=== PATIENT | male | born 1970 | race Caucasian/White ===

== ENCOUNTER 2020-10-25 10:45 | Observation (INO) ==
[2020-10-25] MEDS ORDERED: 0.9 % Sodium Chloride 1,000 ML IVC ONE (11:02)
[2020-10-25] MEDS ORDERED: *HR* FentaNYL (PF) 100 MCG/2 ML VIAL IVP ONE ×2 (11:08→15:57)
[2020-10-25] MEDS ORDERED: Ondansetron 4 MG/2 ML VIAL IVP ONE ×2 (11:08→15:57)
[2020-10-25 11:37] LABS: Basophils % 0.9 %; Eosinophils % 0.9 %; Immature Granulocytes % 0.2 % (0-4); Red Cell Distribution Width 12.7 % (11.5-14.5)
[2020-10-25 11:39] LABS: Hematocrit 46.2 % (37.5-50.1); Hemoglobin 16.2 g/dL (12.9-16.9); Immature Platelets 9.6 % (1.1-6.1); Lymphocytes # 1.3 K/mcL (0.6-4.6); Lymphocytes % 28.4 %; Mean Corpuscular HGB Conc 35.1 g/dL (31.6-35.5); Mean Corpuscular Hemoglobin 33.2 pg (28.0-33.3); Mean Corpuscular Volume 94.7 fL (83.0-100.0); Mean Platelet Volume 11.6 fL (9.4-12.4); Monocytes # 0.3 K/mcL (0.0-1.3); Monocytes % 7.3 %; Neutrophils # 2.9 K/mcL (1.6-8.9); Red Blood Count 4.88 M/mcL (4.19-5.50); Segmented Neutrophils % 62.3 %; White Blood Count 4.6 K/mcL (4.3-11.1)
[2020-10-25 11:55] LABS: Platelet Count 71 K/mcL (140-400)
[2020-10-25 11:58] LABS: Alanine Aminotransferase 104 Units/L (7-52); Albumin 3.7 g/dL (3.5-5.7); Albumin/Globulin Ratio 0.9 (1.1-2.2); Alkaline Phosphatase 104 Units/L (34-104); Aspartate Amino Transferase 142 Units/L (13-39); BUN/Creatinine Ratio 14 (6-26); Bilirubin,Direct 2.9 mg/dL (0.0-0.2); Bilirubin,Indirect 4.4 mg/dL (0.0-1.0); Bilirubin,Total 7.3 mg/dL (0.3-1.0); Blood Urea Nitrogen 10 mg/dL (6-20); Calcium 9.1 mg/dL (8.6-10.3); Carbon Dioxide 22 mEq/L (23-29); Chloride 103 mEq/L (98-107); Globulin 3.9 g/dL (2.4-3.5); Glucose 193 mg/dL (70-105); Lipase 63 Units/L (11-82); Osmolality,Calculated 286 (280-300); Potassium 3.3 mEq/L (3.5-5.1); Sodium 136 mEq/L (136-145); Total Protein 7.6 g/dL (6.4-8.9); Troponin I < 0.03 ng/mL (< 0.04); eGFR For African Americans > 60 (> 60); eGFR For Non-African Americans > 60 (> 60)
[2020-10-25] MEDS ORDERED: Isovue-370 500 ML BOTTLE IVP ONE (12:24)
[2020-10-25] MEDS ORDERED: 0.9 % Sodium Chloride 1,000 ML IV ONE (13:27)
[2020-10-25 15:01] LABS: Bilirubin,Urine Negative (Negative); Blood,Urine Negative (Negative); Clarity,Urine Clear (Clear); Color,Urine Light-Orange (Yellow); Glucose,Urine (UA) Normal (Normal); Ketones,Urine Negative (Negative); Leukocyte Esterase,Urine Negative (Negative); Nitrite,Urine Negative (Negative); PH,Urine 6.5 pH Units (5.0-8.0); Protein,Urine Trace mg/dL (Neg-Trace); Specific Gravity,Urine > 1.030 (1.010-1.025); Urobilinogen,Urine >=8.0 mg/dL (Normal)
[2020-10-25 16:47] LABS: Hepatitis B Surface Antigen Nonreactive (Nonreactive)
[2020-10-25 17:16] LABS: Hepatitis B Core IgM Nonreactive (Nonreactive)
[2020-10-25 17:18] LABS: Hepatitis A Antibody IgM Nonreactive (Nonreactive)
[2020-10-25 17:58] LABS: INR 1.9; Prothrombin Time 21.7 Seconds (9.4-12.1)
[2020-10-25 18:01] LABS: Activated Partial Thrombo Time 36.9 Seconds (26.0-36.0)
[2020-10-25] MEDS ORDERED: Nicotine 21 MG PATCH.TD24 TD STA (18:54)
[2020-10-25] MEDS ORDERED: *HR* LORazepam 2 MG/ML VIAL IVP ONE (20:52)
[2020-10-25] MEDS ORDERED: MethylPREDNISolone 40 MG/ML VIAL IVP SCH (21:00)
[2020-10-25 21:31] LABS: Hepatitis C Virus Antibody Reactive (Nonreactive)
[2020-10-25] MEDS ORDERED: Naloxone 0.4 MG/ML INJ IVP PRN (22:17)
[2020-10-25] MEDS ORDERED: Melatonin 3 MG TABLET PO PRN (22:17)
[2020-10-25] MEDS ORDERED: 0.9 % Sodium Chloride 1,000 ML IVC SCH (22:30)
[2020-10-25] MEDS ORDERED: *HR* LORazepam 2 MG/ML VIAL IVP PRN ×2 (23:05)
[2020-10-26] MEDS ORDERED: Octreotide 50 MCG/ML INJ IVP ONE ×2 (00:39→01:00)
[2020-10-26] MEDS: Pantoprazole 40 MG VIAL IVP SCH ×3 (01:29→17:05)
[2020-10-26] MEDS: *HR* LORazepam 2 MG/ML VIAL IVP PRN ×2 (01:32→06:40)
[2020-10-26] MEDS: Octreotide 400 MCG in 0.9 % Sodium Chloride 100 ML IVC SCH ×2 (01:32→10:53)
[2020-10-26] MEDS: Ondansetron 4 MG/2 ML VIAL IVP PRN ×2 (02:28→10:48)
[2020-10-26 04:38] LABS: Mean Platelet Volume 11.5 fL (9.4-12.4)
[2020-10-26 04:40] LABS: Hematocrit 42.7 % (37.5-50.1); Hemoglobin 14.7 g/dL (12.9-16.9); Immature Platelets 6.9 % (1.1-6.1); Mean Corpuscular HGB Conc 34.4 g/dL (31.6-35.5); Mean Corpuscular Hemoglobin 33.2 pg (28.0-33.3); Mean Corpuscular Volume 96.4 fL (83.0-100.0); Red Blood Count 4.43 M/mcL (4.19-5.50); Red Cell Distribution Width 12.7 % (11.5-14.5); White Blood Count 3.1 K/mcL (4.3-11.1)
[2020-10-26 04:59] LABS: Alanine Aminotransferase 94 Units/L (7-52); Albumin 3.4 g/dL (3.5-5.7); Albumin/Globulin Ratio 0.9 (1.1-2.2); Alkaline Phosphatase 94 Units/L (34-104); Aspartate Amino Transferase 112 Units/L (13-39); BUN/Creatinine Ratio 13 (6-26); Blood Urea Nitrogen 9 mg/dL (6-20); Calcium 8.6 mg/dL (8.6-10.3); Carbon Dioxide 21 mEq/L (23-29); Chloride 108 mEq/L (98-107); Cholesterol 133 mg/dL (< 200); Globulin 3.7 g/dL (2.4-3.5); Glucose 125 mg/dL (70-105); HDL Cholesterol 19 mg/dL (40-59); LDL Cholesterol,Calculated 99 mg/dL (< 100); Magnesium 1.6 mg/dL (1.6-2.6); Osmolality,Calculated 286 (280-300); Phosphorous 3.4 mg/dL (2.7-4.5); Potassium 3.9 mEq/L (3.5-5.1); Sodium 138 mEq/L (136-145); Total Protein 7.1 g/dL (6.4-8.9); Triglycerides 76 mg/dL (< 150); eGFR For African Americans > 60 (> 60); eGFR For Non-African Americans > 60 (> 60)
[2020-10-26 05:54] LABS: Prothrombin Time 22.4 Seconds (9.4-12.1)
[2020-10-26] MEDS ORDERED: Nicotine 21 MG PATCH.TD24 TD SCH (09:00)
[2020-10-26] MEDS: Lactulose Oral Soln 20 GM/30 ML UDC PO SCH ×2 (10:49→20:02)
[2020-10-26 14:51] LABS: Estimated Average Glucose 91 mg/dl; Hemoglobin A1C 4.8 %
[2020-10-26] MEDS ORDERED: Thiamine (B-1) 100 MG, Folic Acid 1 MG, MVI, adult with vitamin K 10 ML in 0.9 % Sodi... IVPB SCH (18:00)
[2020-10-26] MEDS: Nicotine 21 MG PATCH.TD24 TD SCH (20:01)
[2020-10-27] MEDS ORDERED: *HR* HYDROmorphone 2 MG TABLET PO ONE (01:33)
[2020-10-27 01:47] VITALS: BP 158/97
[2020-10-27 02:48] LABS: Basophils % 0.5 %; Eosinophils % 0.7 %; Hematocrit 41.3 % (37.5-50.1); Hemoglobin 14.7 g/dL (12.9-16.9); Immature Granulocytes % 0.3 % (0-4); Immature Platelets 7.4 % (1.1-6.1); Lymphocytes # 1.5 K/mcL (0.6-4.6); Lymphocytes % 25.4 %; Mean Corpuscular HGB Conc 35.6 g/dL (31.6-35.5); Mean Corpuscular Hemoglobin 33.8 pg (28.0-33.3); Mean Corpuscular Volume 94.9 fL (83.0-100.0); Mean Platelet Volume 11.4 fL (9.4-12.4); Monocytes # 0.4 K/mcL (0.0-1.3); Neutrophils # 3.8 K/mcL (1.6-8.9); Platelet Count 65 K/mcL (140-400); Red Blood Count 4.35 M/mcL (4.19-5.50); Red Cell Distribution Width 12.5 % (11.5-14.5); Segmented Neutrophils % 66.1 %; White Blood Count 5.7 K/mcL (4.3-11.1)
[2020-10-27 03:03] LABS: Alanine Aminotransferase 82 Units/L (7-52); Albumin 3.4 g/dL (3.5-5.7); Alkaline Phosphatase 88 Units/L (34-104); Aspartate Amino Transferase 90 Units/L (13-39); BUN/Creatinine Ratio 15 (6-26); Blood Urea Nitrogen 10 mg/dL (6-20); Calcium 8.5 mg/dL (8.6-10.3); Carbon Dioxide 26 mEq/L (23-29); Chloride 104 mEq/L (98-107); Globulin 3.4 g/dL (2.4-3.5); Glucose 123 mg/dL (70-105); Osmolality,Calculated 284 (280-300); Potassium 3.1 mEq/L (3.5-5.1); Sodium 137 mEq/L (136-145); Total Protein 6.8 g/dL (6.4-8.9); eGFR For African Americans > 60 (> 60); eGFR For Non-African Americans > 60 (> 60)
[2020-10-27 03:04] LABS: Albumin 3.4 g/dL (3.5-5.7); Globulin 3.4 g/dL (2.4-3.5); Total Protein 6.8 g/dL (6.4-8.9)
[2020-10-27] MEDS ORDERED: Ibuprofen 800 MG TABLET PO ONE (04:33)
[2020-10-27] MEDS: Pantoprazole 40 MG VIAL IVP SCH (04:49)
[2020-10-27] MEDS: Nicotine 21 MG PATCH.TD24 TD SCH (08:45)
[2020-10-27] MEDS: Lactulose Oral Soln 20 GM/30 ML UDC PO SCH (08:45)
== END 2020-10-27 10:40 | disposition home or self-care (01) ==
LOC: EMEROOARM 10:45 → 3NENU 10:45 → 2ANU 23:30 → 3BNU 10-26 22:47
PROVIDERS: ADMIT Student in an Organized Health Care Education/Training Program; ATTEND Student in an Organized Health Care Education/Training Program

== ENCOUNTER 2021-01-20 20:52 | Observation (INO) ==
[2021-01-20] MEDS ORDERED: Isovue-370 500 ML BOTTLE IVP ONE ×2 (21:23→21:33)
[2021-01-20] MEDS ORDERED: Ondansetron 4 MG/2 ML VIAL ONE (21:30)
[2021-01-20] MEDS ORDERED: Morphine Sulfate 2 MG/ML SYRINGE IVP ONE ×2 (21:34→23:57)
[2021-01-20] MEDS ORDERED: Ondansetron 4 MG/2 ML VIAL IVP ONE (21:34)
[2021-01-20 21:46] LABS: Basophils # 0.1 K/mcL (0.0-0.2); Basophils % 0.8 %; Eosinophils % 0.3 %; Hematocrit 46.1 % (37.5-50.1); Hemoglobin 16.2 g/dL (12.9-16.9); Immature Granulocytes % 0.3 % (0-4); Lymphocytes # 1.8 K/mcL (0.6-4.6); Lymphocytes % 20.5 %; Mean Corpuscular HGB Conc 35.1 g/dL (31.6-35.5); Mean Corpuscular Hemoglobin 31.4 pg (28.0-33.3); Mean Corpuscular Volume 89.3 fL (83.0-100.0); Mean Platelet Volume 10.9 fL (9.4-12.4); Monocytes # 0.5 K/mcL (0.0-1.3); Monocytes % 6.1 %; Neutrophils # 6.2 K/mcL (1.6-8.9); Platelet Count 142 K/mcL (140-400); Red Blood Count 5.16 M/mcL (4.19-5.50); Red Cell Distribution Width 12.9 % (11.5-14.5); White Blood Count 8.6 K/mcL (4.3-11.1)
[2021-01-20 22:27] LABS: INR 1.5; Prothrombin Time 17.3 Seconds (9.4-12.1)
[2021-01-20 22:44] LABS: Alanine Aminotransferase 50 Units/L (7-52); Albumin 4.2 g/dL (3.5-5.7); Albumin/Globulin Ratio 0.9 (1.1-2.2); Alkaline Phosphatase 100 Units/L (34-104); Aspartate Amino Transferase 75 Units/L (13-39); BUN/Creatinine Ratio 14 (6-26); Bilirubin,Direct 0.4 mg/dL (0.0-0.2); Bilirubin,Indirect 2.7 mg/dL (0.0-1.0); Bilirubin,Total 3.1 mg/dL (0.3-1.0); Blood Urea Nitrogen 11 mg/dL (6-20); Calcium 9.4 mg/dL (8.6-10.3); Carbon Dioxide 20 mEq/L (23-29); Chloride 103 mEq/L (98-107); Globulin 4.5 g/dL (2.4-3.5); Glucose 106 mg/dL (70-105); Lipase 43 Units/L (11-82); Osmolality,Calculated 278 (280-300); Sodium 134 mEq/L (136-145); Total Protein 8.7 g/dL (6.4-8.9); eGFR For African Americans > 60 (> 60); eGFR For Non-African Americans > 60 (> 60)
[2021-01-20 23:40] LABS: Troponin I < 0.03 ng/mL (< 0.04)
[2021-01-21] MEDS ORDERED: Nicotine 21 MG PATCH.TD24 TD ONE (00:30)
[2021-01-21] MEDS ORDERED: *HR* HYDROmorphone (PF) 1 MG/ML SYRINGE IVP ONE (02:49)
[2021-01-21] MEDS ORDERED: Ondansetron 4 MG/2 ML VIAL IVP PRN (03:04)
[2021-01-21] MEDS ORDERED: Melatonin 3 MG TABLET PO PRN (03:04)
[2021-01-21] MEDS ORDERED: Naloxone 0.4 MG/ML INJ IVP PRN (03:04)
[2021-01-21] MEDS ORDERED: Pantoprazole 40 MG VIAL IVP ONE (04:48)
[2021-01-21] MEDS: 0.9 % Sodium Chloride 1,000 ML IVC SCH ×2 (05:20→18:13)
[2021-01-21] MEDS: *HR* Heparin 5,000 UNIT/ML VIAL SQ SCH ×2 (05:20→16:52)
[2021-01-21 06:22] LABS: Hematocrit 41.4 % (37.5-50.1); Hemoglobin 14.2 g/dL (12.9-16.9); Immature Platelets 7.3 % (1.1-6.1); Mean Corpuscular HGB Conc 34.3 g/dL (31.6-35.5); Mean Corpuscular Hemoglobin 31.1 pg (28.0-33.3); Mean Corpuscular Volume 90.8 fL (83.0-100.0); Red Blood Count 4.56 M/mcL (4.19-5.50)
[2021-01-21 06:41] LABS: BUN/Creatinine Ratio 13 (6-26); Blood Urea Nitrogen 9 mg/dL (6-20); Calcium 8.9 mg/dL (8.6-10.3); Carbon Dioxide 23 mEq/L (23-29); Chloride 106 mEq/L (98-107); Glucose 101 mg/dL (70-105); Osmolality,Calculated 285 (280-300); Potassium 3.3 mEq/L (3.5-5.1); Sodium 138 mEq/L (136-145); eGFR For African Americans > 60 (> 60); eGFR For Non-African Americans > 60 (> 60)
[2021-01-21] MEDS ORDERED: Potassium Chloride 20 MEQ, Lidocaine 1% 2 ML in 0.9 % Sodium Chloride 250 ML IVPB ONE (08:46)
[2021-01-21] MEDS: Pantoprazole 40 MG VIAL IVP SCH ×2 (10:52→16:53)
[2021-01-21] MEDS ORDERED: *HR* Rocuronium Bromide 50 MG/5 ML VIAL ONE (11:59)
[2021-01-21] MEDS ORDERED: *HR* FentaNYL (PF) 100 MCG/2 ML VIAL ONE (12:01)
[2021-01-21] MEDS ORDERED: *HR* Succinylcholine 200 MG/10 ML VIAL IVP ONE (12:03)
[2021-01-21] MEDS ORDERED: Lidocaine -MPF 2% 5 ML VIAL ONE (12:03)
[2021-01-21] MEDS ORDERED: Ondansetron 4 MG/2 ML VIAL ONE (12:03)
[2021-01-21] MEDS ORDERED: *HR* Propofol 200 MG/20 ML VIAL IVP ONE (12:04)
[2021-01-21] MEDS ORDERED: Ringers Solution, Lactated 1,000 ML IVC SCH (12:30)
[2021-01-21] MEDS: *HR* OxyCODONE ER (12 HR) 10 MG TABLET PO SCH (16:53)
[2021-01-21] MEDS ORDERED: Pantoprazole 40 MG VIAL IVP SCH (18:00)
[2021-01-21 22:26] LABS: Bilirubin,Urine Negative (Negative); Blood,Urine Negative (Negative); Clarity,Urine Clear (Clear); Color,Urine Yellow (Yellow); Glucose,Urine (UA) Normal (Normal); Ketones,Urine Negative (Negative); Leukocyte Esterase,Urine Negative (Negative); Nitrite,Urine Negative (Negative); Protein,Urine Negative (Neg-Trace); Specific Gravity,Urine 1.015 (1.010-1.025)
[2021-01-22] MEDS: 0.9 % Sodium Chloride 1,000 ML IVC SCH (01:23)
[2021-01-22] MEDS: *HR* Heparin 5,000 UNIT/ML VIAL SQ SCH (05:42)
[2021-01-22] MEDS: Pantoprazole 40 MG VIAL IVP SCH (05:43)
[2021-01-22] MEDS: *HR* OxyCODONE ER (12 HR) 10 MG TABLET PO SCH (05:43)
[2021-01-22 07:43] LABS: Hepatitis B Surface Antigen Nonreactive (Nonreactive)
[2021-01-22 08:13] LABS: Hepatitis A Antibody IgM Nonreactive (Nonreactive)
[2021-01-22 08:14] LABS: Hepatitis B Core IgM Nonreactive (Nonreactive)
[2021-01-22] MEDS ORDERED: Nicotine 21 MG PATCH.TD24 TD SCH (09:00)
[2021-01-22 11:06] VITALS: BP 138/83
[2021-01-22 11:09] LABS: Hepatitis C Virus Antibody Reactive (Nonreactive)
[2021-01-22 12:47] LABS: Alanine Aminotransferase 36 Units/L (7-52); Albumin 3.4 g/dL (3.5-5.7); Alkaline Phosphatase 70 Units/L (34-104); Aspartate Amino Transferase 45 Units/L (13-39); BUN/Creatinine Ratio 14 (6-26); Bilirubin,Total 2.2 mg/dL (0.3-1.0); Blood Urea Nitrogen 11 mg/dL (6-20); Calcium 8.7 mg/dL (8.6-10.3); Carbon Dioxide 24 mEq/L (23-29); Chloride 103 mEq/L (98-107); Globulin 3.4 g/dL (2.4-3.5); Glucose 117 mg/dL (70-105); Osmolality,Calculated 282 (280-300); Sodium 136 mEq/L (136-145); Total Protein 6.8 g/dL (6.4-8.9); eGFR For African Americans > 60 (> 60); eGFR For Non-African Americans > 60 (> 60)
[2021-01-22 15:39] LABS: Appearance of Body Fluid Cloudy (Clear)
[2021-01-22 15:40] LABS: Volume of Body Fluid 20 mL
== END 2021-01-22 12:35 | disposition home or self-care (01) ==
LOC: 3BNU 20:52 → EMEROOARM 20:52 → SUATTDRO 01-21 01:28 → 3BNU 01-21 01:55
PROVIDERS: ADMIT Internal Medicine; ATTEND Registered Nurse